=== PATIENT | male | born 1970 | race African-American/Black ===

== ENCOUNTER 2021-12-12 17:50 | Emergency (ER) | payer MEDICARE, OTHER ==
[~2021-12-12] VITALS: Ht 188 cm; Wt 75.0 kg
[2021-12-12 20:41] VITALS: BP 143/99
== END 2021-12-12 20:58 | disposition home or self-care (01) ==
LOC: EDBD 17:50 → ER 17:53
DX: I10 Essential (primary) hypertension (principal); Z88.2 Allergy status to sulfonamides
CPT/HCPCS: 93005